=== PATIENT | male | born 2000 | race Caucasian/White ===

== ENCOUNTER 2019-09-04 18:32 | Emergency (ER) | payer MEDICAID ==
[~2019-09-04] VITALS: Ht 177.8 cm; Wt 69.0 kg
[2019-09-04] MEDS ORDERED: ONDANSETRON HCL 4MG/2ML INJ IV STA (22:39)
[2019-09-04] MEDS ORDERED: KETOROLAC 30MG/ML VIAL IV STA (22:39)
[2019-09-04] MEDS ORDERED: SODIUM CHLORIDE 0.9% 1,000 ML IV ONE (22:39)
[2019-09-04] MEDS ORDERED: MAGNESIUM/ALUMINUM HYDROXIDE/SIMETHICONE 30ML UDC PO ONE (22:45)
[2019-09-04] MEDS ORDERED: VISCOUS LIDOCAINE 2% 15 ML UDC PO ONE (22:45)
[2019-09-04] MEDS ORDERED: FAMOTIDINE 20MG/2ML VIAL IV ONE (22:45)
[2019-09-04 23:08] LABS: CHLORIDE 102 mEq/L (98-107)
[2019-09-04 23:09] LABS: BASOPHILS % 0.2 % (0.0-2.0); EOSINOPHILS % 1.5 % (0.0-5.0); HEMATOCRIT. 50.2 % (42.0-52.0); HEMOGLOBIN. 17.2 g/dL (14.0-18.0); LYMPHOCYTES % 31.9 % (20.0-50.0); MEAN CORPUSCULAR HEMOGLOBIN 30.9 pg (28.0-32.0); MEAN CORPUSCULAR VOLUME 89.9 fL (80.0-94.0); MEAN PLATELET VOLUME 9.6 fl (7.4-10.4); MONOCYTES % 6.5 % (2.0-8.0); NEUTROPHILS % 59.9 % (40.0-76.0); PLATELET 182 x1000/uL (130-400); RED BLOOD CELL COUNT 5.59 mill/uL (4.7-6.1); RED CELL DISTRIBUTION WIDTH 13.2 % (11.6-14.6)
[2019-09-04 23:12] LABS: ETHANOL BLOOD < 10 mg/dL
[2019-09-05 13:00] VITALS: BP 117/75
== END 2019-09-05 15:41 | disposition home or self-care (01) ==
LOC: ER 18:32
DX: R07.89 Other chest pain (principal); R10.13 Epigastric pain; K21.9 Gastro-esophageal reflux disease without esophagitis
CPT/HCPCS: 36415; 71045; 80053; 80320; 83690; 84484; 85025; 85379; 93005; 96374; 96375; 99284; J1885; J2405; J3490; J7030; Z7610; G0480